=== PATIENT | male | born 1995 | race African-American/Black ===

== ENCOUNTER 2019-02-18 04:51 | Emergency (ER) | payer OTHER ==
[~2019-02-18] VITALS: Ht 185.4 cm; Wt 74.8 kg
[2019-02-18] MEDS ORDERED: ALBUTEROL2.5 MG/0.1 INH (05:02)
[2019-02-18] MEDS ORDERED: PREDNISONE50 MG PO (05:10)
[2019-02-18] MEDS ORDERED: PROAIR HFA8.5 GM INH (05:10)
[2019-02-18 05:49] VITALS: BP 138/71
== END 2019-02-18 05:51 ==
LOC: M.ERS 04:51
DX: J45.901 Unspecified asthma with (acute) exacerbation (principal); Z91.048 Other nonmedicinal substance allergy status